=== PATIENT | male | born 1940 | race Caucasian/White ===

== ENCOUNTER 2017-07-28 10:33 | Observation (INO) | payer MEDICAID, OTHER ==
[~2017-07-28] VITALS: Ht 168.9 cm; Wt 66.5 kg
[2017-07-28] VITALS (10 sets, daily range): BP systolic 119–173; BP diastolic 79–96; PULSE 59–66; RESP 16–18; TEMP 97.7–98.6; O2SAT 92–97
[2017-07-28] MEDS ORDERED: DIAZ5TAB PO (11:45)
[2017-07-28] MEDS ORDERED: POTA-163 PO (11:45)
[2017-07-28] MEDS ORDERED: TAMS0.4C4 PO (11:45)
[2017-07-28] MEDS ORDERED: LOPE2CAP PO (11:45)
[2017-07-28] MEDS ORDERED: TOPI200T7 PO (11:45)
[2017-07-28] MEDS ORDERED: OXYB5TAB10 PO (11:45)
[2017-07-28] MEDS ORDERED: DONE10TA7 PO (11:45)
[2017-07-28] MEDS ORDERED: MORP1TAB24 PO (11:45)
[2017-07-28] MEDS ORDERED: CHLORHEXIDINE GLUCONATE 2 % 1 PACK (2 CLOTHS) TOPICAL PRN (11:45)
[2017-07-28] MEDS ORDERED: POVIDONE IODINE 5% (ANTISEPSIS KIT) 4 APPLICATIONS EACH NARE SCH (11:45)
[2017-07-28] MEDS ORDERED: CITA20TA4 PO (11:45)
[2017-07-28] MEDS ORDERED: SODIUM CHLORID 0.9% 500 ML IV PRN (11:45)
[2017-07-28] MEDS ORDERED: MUPIROCIN 2% OINT 1 APPLIC/GM SYR NASAL SCH (11:45)
[2017-07-28] MEDS ORDERED: LOVA40TA PO (11:45)
[2017-07-28] MEDS ORDERED: INSULIN HUMAN REGULAR 1,000 UNITS/10 ML VIAL SQ PRN (11:45)
[2017-07-28] MEDS ORDERED: ATEN25TA PO (11:45)
[2017-07-28] MEDS ORDERED: LACTATED RINGER'S 1000 ML IV PRN (11:45)
[2017-07-28] MEDS ORDERED: VANCOMYCIN 1000 MG/NS 250 ML IV SCH ×2 (11:45)
[2017-07-28] MEDS ORDERED: MUCI30TA2 PO (11:45)
[2017-07-28] MEDS ORDERED: CHLORHEXIDINE GLUCONATE 2 % 1 PACK (2 CLOTHS) TOPICAL SCH (11:45)
[2017-07-28] MEDS ORDERED: TRAM50TA PO (11:45)
[2017-07-28] MEDS ORDERED: NO Heparin, Lovenox, Coumadin at least 12 hours prior to procedure. PRN (11:45)
[2017-07-28] MEDS ORDERED: POVIDONE IODINE 5% (ANTISEPSIS KIT) 4 APPLICATIONS EACH NARE PRN (11:45)
[2017-07-28] MEDS ORDERED: METOPROLOL TARTRATE 25 MG TAB PO PRN (11:45)
[2017-07-28] MEDS ORDERED: HYDR-3580 PO (11:45)
[2017-07-28] MEDS ORDERED: Hold AM Insulin & AM Hypoglycemic medications in diabetic patients PRN (11:45)
[2017-07-28] MEDS ORDERED: ALBU0.63 NEB (11:45)
[2017-07-28 11:51] LABS: AUTOMATED NEUTROPHIL # 5.5 TH/MM3 (1.8-7.7); BASOPHIL % 0.2 % (0.0-2.0); EOSINOPHIL # 0.1 TH/MM3 (0-0.4); EOSINOPHIL % 1.5 % (0.0-4.0); HEMATOCRIT 39.2 % (39.0-51.0); HEMO FLAGS DIFF FINAL; LYMPH % 17.8 % (9.0-44.0); LYMPHOCYTE # 1.3 TH/MM3 (1.0-4.8); MEAN CELL VOLUME 96.9 FL (80.0-100.0); MEAN CORPUSCULAR HEMOGLOBIN 32.9 PG (27.0-34.0); MONO % 6.6 % (0.0-8.0); NEUT % 73.9 % (16.0-70.0); PLATELET COUNT 192 TH/MM3 (150-450); RED BLOOD COUNT 4.04 MIL/MM3 (4.50-5.90); RED CELL DISTRIBUTION WIDTH 13.5 % (11.6-17.2); WHITE BLOOD COUNT 7.4 TH/MM3 (4.0-11.0)
[2017-07-28] MEDS ORDERED: NS 1000 ML IV SCH (12:00)
[2017-07-28 12:01] LABS: APTT (PATIENT) 26.1 SEC (24.3-30.1); INTERNATIONAL NORMALIZED RATIO 1.1 RATIO
[2017-07-28 12:04] LABS: BICARBONATE 24.4 MEQ/L (21.0-32.0); POTASSIUM 4.1 MEQ/L (3.5-5.1)
[2017-07-28] MEDS ORDERED: MIDAZOLAM HCL 2 MG/2 ML VIAL ONE (13:31)
[2017-07-28] MEDS ORDERED: LIDOCAINE HCL 2% 50 ML VIAL ONE (13:44)
[2017-07-28] MEDS ORDERED: VANCOMYCIN 500 MG VIAL ONE (13:44)
--- NOTE | 2017-07-28 15:17 | CATHPROC ---
[facility] HIS Report Study Information Study Number Admission Scheduled Start Study Start [id number] Jul 28 2017 10:33AM 07/28/2017 Jul 28 2017 1:27PM [place] Service Cardiac Pacer/ICD Admit Source Facility Department Other [facility] - Is Analyst Physician and Clinical Staff Initial [facility] Chaplain Prashant Sharma,RT(R) Other Anesthesia, GEEK SQUAD AGENT Recorder Melita Parson,STEPHEN Scrub Umm Hoskins,EVAN Procedures Performed Procedure Lead Insertion Lead Revision Equipment Time Enterprise Application Developer Description Size Mfg Part Number Used/Scraped [employer]/ EP 14:19 LEAD, INGEVITY MRI 52CM 52CM [id number] Used PACER DERMABOND, ADHESIVE SKIN [id number] 13:57 CORDIS/PACER * Used GLUE MINI *[id number] 13:57 MEDLINE PACER ADHESIVE, MASTISOL 2/3CC 2/3CC 0523-48 Used 13:57 MEDLINE PACER HEMPHILL, LIMB * 2530 *[id number] Used [id number] 13:57 MEDLINE PACER PACK, PACER CUSTOM * Used *[id number] 13:57 MEDLINE PACER PEN, SKIN DUAL W/ RULER * Used *[id number] 14:10 [employer] MEDICAL PACER SAFE SHEATH, FR7, 13CM FR 7 [id number] Used 14:32 [employer] MEDICAL PACER SAFE SHEATH, FR7, 13CM FR 7 [id number] Used 13:55 Needle Sponge Count 1 111 Used 13:55 Needle Sponge Count 1 1 Used 14:10 Needle Sponge Count 2 2 Used 15:01 Needle Sponge Count 3 3 Used 15:05 Needle Sponge Count 3 3 Used 13:55 Needle Sponge Count 30 1 Used [id number] *[id number] SUTURE, 0 ETHIBOND [CT1] (CX21D), 8pk SUTURE, 2-0 VICRYL [CT1] (RRJ522D) SUTURE, 4-0 MONOCRYL [PS2] (Y496G) [id number] 13:57 [employer],WARM AIR CCL * Used *[id number] [facility] PAD, ELECTROSURGICAL 13:57 * [id number] *[id number] Used SURGICAL GROUNDING ORANGE 14:00 VITATRON MEDTRONIC PLASMABLADE, PEAD 3.0S * [id number] Used [id number] 13:57 [employer]. ELECTRODE, PRO-PADZ BIPHASIC * Used *[id number] Equipment Model, Serial, Lot Number and Expiration Data Description Model Number Serial Number Lot Number Expiration Date LEAD, INGEVITY MRI 52CM 7741 52 [id number] 03-11-2019 History: Allergies Allergy Reaction Sulfa (Sulfonamide Antibiotics) History: Risk Factors Hypertension Previous Heart Failure Yes Yes Labs Hgb (g/dl) Hct (%) RBC (MIL/MM3) WBC (l/cumm) Platelets (thousands) 11.60-17.00 35.00-51.00 4.00-5.90 4.00-11.00 150.00-450.00 13.0 39 4 7.4 192 Glucose (mg/dl) BUN (mg/dl) Creatinine (mg/dl) BUN:Creatinine (1:x) 74.00-106.00 7.00-18.00 0.50-1.30 10.00-20.00 100 33 1.2 27.5 Na (meq/l) K (meq/l) 136.00-145.00 3.50-5.10 146 4.1 INR (PTT:PT) 0.90-1.10 1.1 Medication Medication Total Dose (Bolus/Oral) Medication Total Dosage/Unit 2% XYLOCAINE 50 mL Medications (Bolus/Oral) Medication Time Given Dosage/Unit Administered By Reason 2% XYLOCAINE 07/28/2017 2:09:20 PM 50 mL Anesthesia, GEEK SQUAD AGENT 50 mL 2% XYLOCAINE given in lab by Anesthesia, GEEK SQUAD AGENT via Subcutaneous. Ordered by Vel العلي. Medication (Drip) Medication Time Given Dosage/Unit Concentration/Unit Diluent (ml) Solution VANCOMYCIN DRIP 07/28/2017 1:50:51 PM 1 g 1 g VANCOMYCIN DRIP given in lab by Anesthesia, GEEK SQUAD AGENT via Peripheral IV. Ordered by Vel العلي. Mala son: As per physicians verbal order. Initial Case Assessment Initial Case Assessment Cardiovascular HR Rhythm NIBP Chest Pain 63 paced 150/76 0 Edema Present Skin color Skin None Normal Warm Dry Circulatory - Right Pulses Radial 3 Scale (0,1,2,3,4,d) Circulatory - Left Pulses Radial 3 Scale (0,1,2,3,4,d) Circulatory - Lower Extremities Color Lower Right Color Lower Left Normal Normal Neurological State Oriented to time-place- Alert Moves all extremities person Respiration - General Respiration Rate SpO2 (%) O2 (lpm) (B/min) 20 99 8 Final Case Assessment Cardiovascular HR Rhythm NIBP Chest Pain 60 paced 136/79 0 Edema Present Skin color Skin None Normal Warm Dry Circulatory - Right Pulses Radial 3 Scale (0,1,2,3,4,d) Circulatory - Left Pulses Radial 3 Scale (0,1,2,3,4,d) Circulatory - Lower Extremities Color Lower Right Color Lower Left Normal Normal Neurological State Oriented to time-place- Lethargic Moves all extremities person Respiration - General Respiration Rate SpO2 (%) O2 (lpm) (B/min) 16 98 8 Chronological Log Time Study Chronological Log 13:31:01 Patient arrived via Bed. 13:31:03 Patient Name, D.O.B, / Armband Verified By R.N. 13:31:04 Consent signed by the physician and the patient and verified by the Is Analyst staff. 13:31:06 Verbal Stimulation=2 Physical Stimulation=2 Airway=2 Respiration=2 TOTAL=8. (0=absent, 1=li mited, 2=present) 13:31:27 Anesthesia at bedside. Assumes care of patient. Raudel + student 13:31:35 Patient has been NPO for More than 6Hrs. 13:32:40 Skin Breakdown- none per pt 13:32:54 Patient Warmer Placed on the Table. 13:32:58 Disposable Defibrillator Pads Placed On Patient. 13:33:01 Kita Prominences Protected 13:33:04 A # 20 IV was noted in the Antecubital (left). Grade = 0 13:33:15 History and physical on the chart or being dictated. 13:33:21 Table restraints applied according to hospital policy 13:34:00 2% CHLORHEXIDINE GLUCONATE WASH AND NASAL SWIPE DONE PRIOR TO PROCEDURE. 13:34:01 Bovie ground pad applied to: right thigh First Sponge And Instrument Count Done by Umm Hoskins RCIS. 13:44:37 Hypo's: 2, Sponges: 30, Bovie/scratch: 1 Sutures: 11, Blades: 2, Instruments: 26, Syveck Patches: 0 plasma blade 1 g VANCOMYCIN DRIP given in lab by Anesthesia, GEEK SQUAD AGENT via Peripheral IV. Ordered by Rishi العلي Reason: As per 13:50:51 physicians verbal order. 13:51:39 Left Upper Chest Prepped Times Two. 13:53:18 Assessment: Initial Case 13:53:48 Reference ECG taken 13:54:18 2% CHLORHEXIDINE GLUCONATE WASH AND NASAL SWIPE DONE PRIOR TO PROCEDURE. 14:00:54 MD arrived. Assessment: Initial Case, HR=63 BPM, Rhythm=paced, BENI=502/76 mmhg, Chest Pain=0, Edema=None, Color=Normal, Skin = Warm, Dry Right Pulses: Radial=3 Left Pulses: Radial=3 14:05:50 Lower Right Extremities: Color=Normal Lower Left Extremities: Color=Normal Neurological: State=Alert, Ox3, ROMAN Respiration: Resp=20 B/min, SpO2=99 %, O2=8 lpm Time Out. Correct patient, procedure, procedure equipment, site and side verified with physicia n present. Time 14:08:00 concurred by MD, individual staff and GEEK SQUAD AGENT. Time Out #2 - Consents verified, patient in correct position, all results are labled and displa yed, safety precautions 14:08:17 taken, antibiotics administered. Time out concurred by MD, individual staff and GEEK SQUAD AGENT in procedu re 14:08:41 Case Start 14:09:20 50 mL 2% XYLOCAINE given in lab by Anesthesia, GEEK SQUAD AGENT via Subcutaneous. Ordered by Wild العلي. 14:10:00 Surgical Incision Made. 14:12:00 A pocket was created at the L Upper Chest. 14:17:00 Vascular access was obtained in the Subclav. Vein (Lft. 14:17:39 A SAFE SHEATH, FR7, 13CM FR 7 was advanced into the Subclav. Vein (Lft using the Modified S eldinger technique. 14:22:05 Old RV lead was extracted. 14:35:00 A LEAD, INGEVITY MRI 52CM 52CM was inserted and positioned in the RV. 14:35:11 Lead placement verified under fluoroscopy 14:35:16 The RV lead impedance and threshold being tested. 14:35:20 The RV lead was sutured to the fascia. 14:35:33 A SAFE SHEATH, FR7, 13CM FR 7 was advanced into the Subclav. Vein (Lft using the Modified S eldinger technique. 14:35:44 A lead was inserted and positioned in the RA. 7740 45cm 14:36:54 The Atrial lead impedance and threshold is being tested. 14:42:25 The RA Lead Was Revised. 14:46:31 The Atrial lead impedance and threshold is being tested. 14:47:28 The Atrial lead was sutured to the fascia. 14:52:56 Old atrial lead extracted. 14:56:15 Pocket flushed with antibiotic solution Second Sponge And Instrument Count Done by Umm Hoskins RCIS. 14:59:37 Hypo's: 2, Sponges: 30, Bovie/scratch: 1 Sutures: 11, Blades: 2, Instruments: 26, Syveck Patches: 0 plasma blade 15:04:37 The pocket was closed. Final Sponge And Instrument Count Done by Umm Hoskins RCIS. 15:06:22 Hypo's: 2, Sponges: 30, Bovie/scratch: 1 Sutures: 11, Blades: 2, Instruments: 26, Syveck Patches: 0 plasma blade 15:11:38 Implant Procedure was performed. 15:11:46 A Lead Removal . (Dual) atrial and ventricular leads replaced 15:12:41 CICU called. Spoke to Josefina 15:13:33 Bedside Report will be given. 15:13:40 Case End 15:13:43 Steri-strips and a sterile dressing applied to site. 15:13:56 No case complications noted. 15:13:57 Cine recording checked. Assessment: Final Case, HR=60 BPM, Rhythm=paced, IBWO=617/79 mmhg, Chest Pain=0, Edema=None, Color=Normal, Skin = Warm, Dry Right Pulses: Radial=3 Left Pulses: Radial=3 15:15:09 Lower Right Extremities: Color=Normal Lower Left Extremities: Color=Normal Neurological: State=Lethargic, Ox3, ROMNA Respiration: Resp=16 B/min, SpO2=98 %, O2=8 lpm 15:16:59 Defibrillator and ground pads removed. Skin intact. 15:25:37 Patient moved to stretcher 15:27:35 A sling was placed on the affected arm. End Study - Contrast Media Used In Study Contrast Total Opened (mL) Total Used (mL) Total Wasted (mL) Unspecified 0 0 0 End Study - Maximum Contrast Load Max Contrast Load (mL) 364.6 End Study - Radiation Exposure Fluoro Time (minutes) 6.0 End Study - Patient Disposition Complications Transferred To Interventional Outcome No Telemetry Bed successful
[2017-07-28] MEDS ORDERED: ALUMINUM/MAGNESIUM/SIMETH 30 ML CUP PO PRN (15:30)
[2017-07-28] MEDS ORDERED: SODIUM CHLORIDE 0.9% FLUSH 10 ML FLUSH IV FLUSH PRN (15:30)
[2017-07-28] MEDS ORDERED: MAGNESIUM HYDROXIDE SUSP 30 ML CUP PO PRN (15:30)
[2017-07-28] MEDS ORDERED: ONDANSETRON HCL 4 MG/2 ML VIAL IV PUSH PRN (15:30)
[2017-07-28] MEDS ORDERED: ACETAMINOPHEN/CODEINE 300 MG/30 MG TAB PO PRN (15:30)
--- NOTE | 2017-07-28 16:07 | RADRPT ---
EXAM DATE/TIME: 07/28/2017 15:42 [place] COMPARISON: No previous studies available for comparison. INDICATIONS : Post pacemaker. MEDICAL HISTORY : no known hx SURGICAL HISTORY : no known hx ENCOUNTER: Initial ACUITY: 1 day PAIN SCORE: 0/10 LOCATION: Bilateral chest FINDINGS: Portable AP view of the chest demonstrates a normal-sized cardiac silhouette. Lungs are underinflated . Left chest wall cardiac pacing device is present with lead tips overlying the right atrium and righ t ventricle. No pneumothorax is visualized. There is atelectasis at the lung bases. Bones and soft ti ssues demonstrate no acute finding. CONCLUSION: Left chest wall cardiac pacing device with leads overlying the right heart. No pneumothorax is visual ized. Santiago Hanna MD on July 28, 2017 at 16:05 Board Certified Radiologist. This report was verified electronically.
[2017-07-28] MEDS ORDERED: PT:MUCINEX DM PO PRN (18:45)
[2017-07-28] MEDS ORDERED: traMADol HCL 50 MG TAB PO PRN (19:00)
[2017-07-28] MEDS ORDERED: RESP: ALBUTEROL 0.63 MG/3 ML NEB (PRN) NEB (19:30)
[2017-07-28] MEDS ORDERED: TAMSULOSIN HCL 0.4 MG CAP PO SCH (21:00)
[2017-07-28] MEDS ORDERED: ZOLPIDEM TARTRATE 5 MG TAB PO PRN (21:00)
[2017-07-28] MEDS ORDERED: OXYBUTYNIN CHLORIDE 5 MG TAB PO SCH (21:00)
[2017-07-28] MEDS: TOPIRAMATE 200 MG TAB PO SCH (21:35)
[2017-07-28] MEDS: MORPHINE SULFATE 15 MG CONTROLLED RELEASE TAB PO SCH (21:36)
[2017-07-28] MEDS: SODIUM CHLORIDE 0.9% FLUSH 10 ML FLUSH IV FLUSH SCH (21:36)
[2017-07-29] VITALS (14 sets, daily range): BP systolic 148–160; BP diastolic 82–87; PULSE 59–74; RESP 14–18; TEMP 97.2–98.2; O2SAT 92–94
[2017-07-29] MEDS ORDERED: VANCOMYCIN INJ 1,000 MG in SODIUM CHLOR 0.9% 250 ML INJ 250 ML IV ONE (07:00)
--- NOTE | 2017-07-29 08:47 | MA ---
cc: TYLER OLMOS MD,FIDEL ARENAS MD DATE 07/28/2017 DATE OF [birth year] [address] Sarabjit العلي. REFERRING PHYSICIAN Dr. Tyler Olmos. CLINICAL INDICATION The patient is a 76-year-old gentleman with dual-chamber pacemaker implanted in September of 2016. The patient was noted to have malfunction of pacemaker with atrial lead not sensing. The patient was symptomatic, thus the patient came in for lead revision. PROCEDURE IN DETAIL The patient was sedated by anesthesiologist using MAC. The patient was prepped and draped in sterile fashion. Left upper chest was anesthetized. A small incision was made. Pocket was opened. Using a first rib approach we were able to access axillary vein twice. Once we dissected to tie down sleeve and suture sleeves was untied. So far the patient was noted to have sensing of the right atrial lead along with RV lead in the very taut position. So far the lead appeared to be stable. We decided to remove both leads including insertion of new RV and RA leads. We did get additional access and we used a 7-Kazakh sheath with RV lead in low septum with good sensing and capture threshold. There was no diaphragmatic stimulation on maximum output. We did a leave a lot of slack in the RV lead. The second lead was placed in the right atrial anterior wall with good sensing and capture threshold. There is no diaphragmatic stimulation on maximum output. We did remove both RV and RA leads under manual traction. Again we dissected lead to tie down sleeve and suture sleeve untied. We extracted both leads using manual traction. We do not have to do laser. So far the patient hemodynamically stable. The existing pacemaker was connected to new RV and RA lead. Appropriate function of device and leads was verified. And the pocket was copiously irrigated with antibiotic solution and closed in three absorbable layers. The patient tolerated the procedure without any complications. DEVICE INFORMATION It is a [employer] dual-chamber pacemaker. The serial number is [id number] which was implanted in September of 2016. We did extract RA lead 7741, serial number [id number]. We also removed RA, RV lead which is 7742, serial number [id number]. We did insert a new RV and RA leads both MRI compatible. Model number is 7740, 45 cm. Serial number is [id number]. The RV lead is 7741/52 cm. Serial number [id number]. So far right atrial lead sensing 5.0 mV, impedance 725 ohms. Threshold is 0.5 volts at 0.5 milliseconds. RV sensing 8.3 mV, impedance 690 ohms, threshold is 0.8 volts at 0.5 milliseconds. Final setting DDDR 60-120. CONCLUSION 1. Successful extraction of RV and RA leads. 2. Successful insertion of the new RV and RA leads. 3. We did keep the existing pacer. ESTIMATED BLOOD LOSS About 5 mL. CONTRAST USED None. PLAN The patient will be checked overnight to check whether the patient has any pneumothorax. It was difficult access. If the patient stays overnight we will consider to discharge the patient tomorrow morning. Thank you Dr. Olmos. MD ADONAY Newell/MARY /3:29 PM /8:37 AM RAS
[2017-07-29] MEDS ORDERED: POTASSIUM CHLORIDE 20 MEQ CONTROLLED RELEASE TAB PO SCH (09:00)
[2017-07-29] MEDS ORDERED: PRAVASTATIN SOD 40 MG TAB PO SCH (09:00)
[2017-07-29] MEDS ORDERED: ATENOLOL 25 MG TAB PO SCH (09:00)
[2017-07-29] MEDS ORDERED: CITALOPRAM HYDROBROMIDE 20 MG TAB PO SCH (09:00)
[2017-07-29] MEDS: TOPIRAMATE 200 MG TAB PO SCH (09:12)
[2017-07-29] MEDS: MORPHINE SULFATE 15 MG CONTROLLED RELEASE TAB PO SCH (09:13)
[2017-07-29] MEDS: SODIUM CHLORIDE 0.9% FLUSH 10 ML FLUSH IV FLUSH SCH (09:15)
--- NOTE | 2017-07-29 14:11 | EKG ---
Date Performed: 07/28/2017 Time Performed: 11:59:00 PTAGE: 76 years EKG: Atrial fibrillation. Left axis deviation Left bundle branch block Possible inferior infarct - age undetermined Abnormal ECG NO PREVIOUS TRACING DOCTOR: Dani Cordoba Interpretating Date/Time 07/29/2017 14:08:57
== END 2017-07-29 12:30 ==
LOC: HDOC 10:33 → HDIC 10:34 → HDOC 10:49 → HCIS 10:49
PROVIDERS: ADMIT Internal Medicine Cardiovascular Disease; ATTEND Internal Medicine Cardiovascular Disease
DX: T82.110A Breakdown (mechanical) of cardiac electrode, initial encounter (principal); I49.5 Sick sinus syndrome; Z01.810 Encounter for preprocedural cardiovascular examination; Z01.818 Encounter for other preprocedural examination
CPT/HCPCS: 00530; 33217; 33235; 71010; 80048; 85025; 85610; 85730; 93005; C1898; J2250; J3010; J3370; J7030; J7050